=== PATIENT | male | born 1980 | race Caucasian/White ===

== ENCOUNTER 2020-08-07 08:00 | Outpatient (CLI) | payer OTHER | END 2020-08-07 23:59 | disposition home or self-care (01) | LOC: COV 08:00 | PROVIDERS: ATTEND Family Medicine | DX: R06.02 Shortness of breath (principal); M79.10 Myalgia, unspecified site; R09.81 Nasal congestion; J34.89 Other specified disorders of nose and nasal sinuses; Z20.822 Contact with and (suspected) exposure to COVID-19 ==

== ENCOUNTER 2023-05-15 17:50 | Emergency (ER) | payer OTHER ==
[2023-05-15 18:00] VITALS: BP 160/72; O2SAT 98
--- NOTE | 2023-05-15 19:41 | ED Physician Documentation ---
History of Present Illness - Stated complaint Stated Complaint: ABCESS TOOTH - Chief complaint Chief Complaint: Heent - Additonal information Additional information: 42-year-old male here for evaluation of 2 weeks left upper mouth pain. He has generally poor dentition and began having symptoms about 2 weeks ago. He does smoke tobacco. 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 He has been taken Tylenol and ibuprofen which are effective at relieving the pain until it comes back. He is unable to see a dentist at this time. Review of Systems Constitutional: denies: Fever Throat: reports: Dental pain / toothache Cardiac: reports: Reviewed and negative Respiratory: reports: Reviewed and negative GI: reports: Reviewed and negative PD PAST MEDICAL HISTORY - Past Medical History Past Medical History: No Cardiovascular: None Respiratory: None Neuro: None Endocrine/Autoimmune: None GI: None HEENT: None Psych: None Musculoskeletal: None Derm: None - Past Surgical History Past Surgical History: No - Present Medications Home Medications: Ambulatory Orders Medication Instructions Recorded Confirmed Amox/Clav 875/125 [Augmentin] 1 each PO Q12H #20 tablet 05/15/23 - Allergies Allergies/Adverse Reactions: Allergies Allergy/AdvReac Type Severity Reaction Status Date / Time No Known Drug Allergies Allergy Verified 05/15/23 17:52 - Social History Does the pt smoke?: No Smoking Status: Never smoker Does the pt drink ETOH?: No Does the pt have substance abuse?: No - Immunizations Immunizations are current?: Yes - POLST Patient has POLST: No PD ED PE NORMAL - General General: Alert and oriented X 3, No acute distress, Well developed/nourished - HEENT HEENT: Atraumatic, Moist mucous membranes, Other Results - Vitals Vitals: Vital Signs - 24 hr 05/15/23 17:52 Temperature 36.8 C Heart Rate 74 Respiratory 16 Rate Blood Pressure 160/72 H O2 Saturation 98 Oxygen O2 Source Room air PD Medical Decision Making - ED course Complexity details: reviewed results, re-evaluated patient, d/w patient ED course: 42-year-old male here for evaluation of 2 weeks left upper mouth/molar region pain. He believes he has an abscessed tooth. On exam he is missing most of his posterior dentition but there is some gumline erythema but no fluctuance or drainage. There is no facial swelling or erythema. No trismus. Clinically I will treat this as a superficial abscess and start him on Augmentin. He is advised close follow-up with dental for long-term management. Departure - Departure Disposition: 01 Home, Self Care Clinical Impression: Dental abscess Condition: Stable Record reviewed to determine appropriate education?: Yes Prescriptions: Amox/Clav 875/125 [Augmentin] 1 each PO Q12H #20 tablet Comments: Johny you appear to have a dental infection. Your first dose of antibiotic was given tonight in the ER. Prescription for Augmentin that you will take twice daily for 10 days was sent to the [facility] in [place]. Please asked them to use the good Rx coupon reid. You will need to see a dentist. If you are unable to follow-up with a dentist on [place] you may benefit from being seen at [facility]. They do have dental clinics. This organization was founded on low cost low insurance dental services. Return to the ER if you find you are having worsening symptoms, unable to open your mouth, develop severe fevers or have facial pain and swelling extending into the eye. In general would like you to take 500 mg of Tylenol 2-3 times a day and a lternate with ibuprofen 600 mg taken with food 3 times a day. Please gargle with warm salt water and you can use Anbesol numbing gel in the area where you are tender as needed Forms: PCP List
[2023-05-15] MEDS ORDERED: AMOX/CLAV 875 MG/125 MG TABLET PO STA (19:50)
== END 2023-05-15 20:00 | disposition home or self-care (01) ==
LOC: ED 17:50
DX: K04.7 Periapical abscess without sinus (principal); F17.200 Nicotine dependence, unspecified, uncomplicated
CPT/HCPCS: 99282; 99283; A9270